=== PATIENT | male | born 1935 | race Hispanic/Latino ===

== ENCOUNTER → 2018-02-25 | Day surgery (SDC) | payer MEDICARE ==
[2018-02-24 13:07] LABS: BASOPHILS % 0.5 % (0.0-1.0); EOSINOPHILS # (AUTO) 0.4 (0.0-0.4); EOSINOPHILS % 4.3 % (0.0-6.0); HEMATOCRIT 42.5 % (38.2-49.6); HEMOGLOBIN 14.5 g/dL (14.0-18.0); LYMPHOCYTES # (AUTO) 2.2 (1.0-3.2); LYMPHOCYTES % 24.8 % (18.0-39.1); MEAN CORPUSCULAR HEMOGLOBIN 30.5 pg (28-32); MEAN CORPUSCULAR HGB CONC 34.1 g/dL (31-35); MEAN CORPUSCULAR VOLUME 89.3 fL (81-99); MONOCYTES # (AUTO) 0.6 (0.2-0.8); NEUTROPHILS # (AUTO) 5.5 (2.1-6.9); NEUTROPHILS % 62.6 % (38.7-80.0); PLATELET COUNT 181 x10e3/uL (140-360); RED BLOOD COUNT 4.76 x10e6/uL (4.3-5.7); RED CELL DISTRIBUTION WIDTH 14.1 % (11.7-14.4)
--- NOTE | 2018-02-24 13:09 | Diagnostic Imaging Report ---
PROCEDURE: Frontal and lateral views of the chest. COMPARISON: None. INDICATIONS: INGUINAL HERNIA REPAIR FINDINGS: Lines/tubes: None. Lungs: The lungs are well inflated and clear. There is no evidence of pneumonia or pulmonary edema. Pleura: There is no pleural effusion or pneumothorax. Heart and mediastinum: The heart and the mediastinum are normal. Bones: No acute bony abnormality. Degenerative changes in the thoracic spine. IMPRESSION: 1. No acute cardiopulmonary abnormalities. Pablo Mcdonald M.D. Dictated by: Pablo Mcdonald M.D. on 02/24/2018 at 13:12 Electronically approved by: Pablo Mcdonald M.D. on 02/24/2018 at 13:12
[2018-02-24 13:23] LABS: BLOOD UREA NITROGEN 18 mg/dL (7-26); BUN/CREATININE RATIO 19 (6-25); CALCIUM 9.1 mg/dL (8.4-10.2); CARBON DIOXIDE 29 mmol/L (22-29); CHLORIDE 104 mmol/L (98-107); CREATININE, SERUM 0.94 mg/dL (0.72-1.25); EST GLOMERULAR FILTRATION RATE > 60 ML/MIN (60-); GLUCOSE 110 mg/dL (74-118); SODIUM 138 mmol/L (136-145)
[~2018-02-25] MED LIST: ASPIR 8181 MG PO; BUPIVACAINE 0.25%/EPI 30ML SDV INJ ONE; CEFAZOLIN SOD 1 GM VIAL IV ONE; DESFLURANE 240 ML BTL INH ONE; DEXAMETHASONE SOD PHOS INJ 4 MG/ML VIAL ONE; DOXAZOSIN MESYLA2 MG PO; FENTANYL CITRATE/PF 100MCG/2 ML INJ ONE; GABAPENTIN400 MG PO; LEVOTHYROXINE50 MCG PO; LIDOCAINE HCL 2% LOCAL INJ 5 ML SDV VIAL INJ ONE; MIDAZOLAM HCL 2 MG/2 ML VIAL ONE; ONDANSETRON HCL INJ 2 MG/ML VIAL ONE; PROPOFOL IV EMULSION 10 MG/ML 20 ML VIAL ONE; SODIUM CHLORIDE 0.9% 50ML 50 ML ONE
--- OUTSIDE RECORDS SUMMARY | 2018-02-25 07:31 | XMS REPORT ---
[facility] Address Unknown Phone Unavailable Care Team Providers Care Coagulator Name Role Phone MICAH MATTA Unavailable Unavailable Problems This patient has no known problems. Allergies, Adverse Reactions, Alerts This patient has no known allergies or adverse reactions. Medications This patient has no known medications. Results Test Description Test Time Test Comments Text Results Atomic Results Result Comments CHEST 2 VIEWS 2018-02-24 13:12:00 [facility] [address] [place] [address] Patient Name: ZEN JAVED MR #: [id number] : 1935 Age/Sex: 82/M Req #: [id number] [facility] Physician: Ordered by: AVERY HEDRICK MD Report #: [id number] Location: OR Room/Bed: Procedure: [id number] DX/CHEST 2 VIEWS Exam Date: 02/24/18 Exam Time: 1235 REPORT STATUS: Signed PROCEDURE: Frontal and lateral views of the chest. COMPARISON: None. INDICATIONS: INGUINAL HERNIA REPAIR FINDINGS: Lines/tubes: None. Lungs: The lungs are well inflated and clear. There is no evidence of pneumonia or pulmonary edema. Pleura: There is no pleural effusion or pneumothorax. Heart and mediastinum: The heart and the mediastinum are normal. Bones: No acute bony abnormality. Degenerative changes in the thoracic spine. IMPRESSION: 1. No acute cardiopulmonary abnormalities. Joselo Mcdonald M.D. Dictated by: Joselo Mcdonald M.D. on 02/24 at 13:12 Electronically approved by: Joselo Mcdonald M.D. on 03/2018 at 13:12 Dictated By: JOSELO MCDONALD MD 1312 Transcribed By: TOMMY on 02/24/18 1312 COPY TO: AVERY HEDRICK MD
--- NOTE | 2018-02-25 13:01 | Operative Report ---
DATE OF PROCEDURE: February 25, 2018 PREOPERATIVE DIAGNOSIS: Right inguinal hernia. POSTOPERATIVE DIAGNOSIS: Right inguinal hernia. PROCEDURE PERFORMED: Repair of right inguinal hernia with Ultrapro Hernia System large size. PLATINUMSMITH: MAIDA Stout ESTIMATED BLOOD LOSS: Minimal. DRAINS: None. COMPLICATIONS: None. INDICATIONS AND FINDINGS: This patient is a pleasant 82-year-old male who complained of a bulge and discomfort of the right groin when lifting objects. He had no history of nausea, vomiting or bleeding. INTRAOPERATIVE FINDINGS: A direct hernia with herniation of properitoneal fat through the direct space, no indirect hernia sac. DESCRIPTION OF PROCEDURE: With the patient lying on the operative table in the supine position, after administration of general anesthesia, he was prepped and draped for repair of a right inguinal hernia. Preemptive anesthesia was given with 0.25% Marcaine with epinephrine as an ilioinguinal nerve block and incisional nerve block. A transverse groin incision was made and deepened through the skin, subcutaneous tissue and Matthew fascia until the external oblique aponeurosis was identified. This was incised along the course of its fibers, transecting the external inguinal ring. Medial and lateral leaves were developed. The cord was mobilized at the level of the pubic tubercle and retracted away from the operative field by a Fatuma drain. The cremaster veil was incised. An indirect hernia sac was searched for, and none was found. The patient had a direct bulge which was from the cord and then reduced. The transversalis fascia was incised, and a pocket was created using blunt dissection to accommodate the mesh. Then the Ultrapro Hernia System mesh was deployed with the underlay part of the mesh over the direct space and the overlay part of the mesh over the inguinal canal floor. A slit was made to accommodate the cord. Then the mesh was secured to the local tissues using a series of interrupted 2-0 Ethibond sutures. The wound was irrigated and bleeding points cauterized. Sponge and instrument count was pronounced correct. The wound was closed in layers using 2-0 Vicryl for the external oblique aponeurosis, 2-0 plain catgut for the soft tissues, and the skin was closed using carlitos. Marcaine 0.25% with epinephrine was given as a local block at the end of the case. The patient tolerated the procedure well was taken to the recovery room in stable condition. Job#: [id number]
== END | disposition home or self-care (01) ==
LOC: OR 07:29
PROVIDERS: ATTEND Surgery
DX: K40.20 Bilateral inguinal hernia, without obstruction or gangrene, not specified as recurrent (principal); E03.9 Hypothyroidism, unspecified; I10 Essential (primary) hypertension; I44.7 Left bundle-branch block, unspecified; Z01.810 Encounter for preprocedural cardiovascular examination; Z01.812 Encounter for preprocedural laboratory examination; Z01.818 Encounter for other preprocedural examination; Z79.82 Long term (current) use of aspirin; Z87.891 Personal history of nicotine dependence
CPT/HCPCS: 36415; 49505; 71046; 80048; 85025; 93005; C1781; J0690; J1100; J2001; J2250; J2405

== ENCOUNTER → 2019-02-07 | Outpatient (CLI) | payer MEDICARE ==
[~2019-02-07] MED LIST changes: -BUPIVACAINE 0.25%/EPI 30ML SDV INJ ONE; -CEFAZOLIN SOD 1 GM VIAL IV ONE; -DESFLURANE 240 ML BTL INH ONE; -DEXAMETHASONE SOD PHOS INJ 4 MG/ML VIAL ONE; -FENTANYL CITRATE/PF 100MCG/2 ML INJ ONE; +IOPAMIDOL 370 MG/ML 200 ML INFUS..BTL INJ ONE; -LIDOCAINE HCL 2% LOCAL INJ 5 ML SDV VIAL INJ ONE; -MIDAZOLAM HCL 2 MG/2 ML VIAL ONE; -ONDANSETRON HCL INJ 2 MG/ML VIAL ONE; -PROPOFOL IV EMULSION 10 MG/ML 20 ML VIAL ONE
[2019-02-07 09:59] LABS: BLOOD UREA NITROGEN 23 mg/dL (7-26); BUN/CREATININE RATIO 22 (6-25); CREATININE, SERUM 1.05 mg/dL (0.72-1.25); EST GLOMERULAR FILTRATION RATE > 60 ML/MIN (60-)
--- NOTE | 2019-02-07 11:26 | Diagnostic Imaging Report ---
CT SOFT TISSUE NECK WO HISTORY: Neck pain COMPARISON: None. TECHNIQUE: Axial CT images were obtained through the neck without intravenous, iodine based contrast. Coronal and sagittal reconstructions obtained from the axial data. One or more of the following dose reduction techniques were used: Automated exposure control, adjustment of the mA and/or kV according to patient size, and/or utilization of iterative reconstruction technique. DISCUSSION: A few small bilateral palatine tonsilloliths are present. Otherwise, the visualized upper aerodigestive tract is unremarkable. No radiographically significant cervical adenopathy is seen. The thyroid gland is atrophic. The submandibular and parotid glands are unremarkable. Mild bilateral carotid bulb calcified plaque is present. The block cutter, parapharyngeal, posterior cervical, and perivertebral spaces are unremarkable. Carotid siphon calcifications are present. Both ocular lenses are thinned. Otherwise, the visualized intracranial compartment and orbits are grossly unremarkable. The paranasal sinuses are clear. There is mild scarring in the lung apices. A few partially calcified right paratracheal lymph nodes suggest remote granulomatous disease. There are no acute osseous abnormalities. Cervical lordosis is preserved. There is no significant scoliosis or subluxation. Multilevel advanced spondylotic changes are present. Multilevel degenerative canal stenoses are present (due to posterior disc osteophyte complexes) - at least moderate at C3-C4 and mild at C4-C5 and C5-C6. Multilevel bilateral degenerative foraminal stenoses are present (due to uncovertebral and facet arthrosis. IMPRESSION: 1. No acute osseous abnormalities. 2. Multilevel advanced spondylosis. Multilevel degenerative canal stenoses - at least moderate at C3-C4. Multilevel bilateral degenerative foraminal stenoses. 3. The visualized upper aerodigestive tract is unremarkable. No radiographically significant cervical adenopathy. 4. Atrophic thyroid gland. Signed by: Dr. Chandler Saunders M.D. on 02/07/2019 11:23 AM
--- NOTE | 2019-02-07 12:17 | Diagnostic Imaging Report ---
CT of the chest, with contrast, 02/07/2019. History: Precordial chest pain. Comparison: None available. Technique: Multidetector CT scanning of the chest was performed from the level of the apices to the upper abdomen after intravenous administration of contrast. Coronal and sagittal multiplanar reformations were obtained. RADIATION DOSE: Total DLP: 456 mGy*cm Dose modulation, iterative reconstruction, and/or weight based adjustment of the mA/kV was utilized to reduce the radiation dose to as low as reasonably achievable. Discussion: Chest: The atria, ventricles, aorta, and main pulmonary artery are normal in size. The thyroid is small but otherwise unremarkable. There is no evidence of axillary or mediastinal adenopathy. There is mild bilateral apical and peripheral lower lobe scarring. There is no evidence of consolidation, mass, or pleural effusion. Limited evaluation of the upper abdomen shows normal adrenal glands. Bones and soft tissues: No acute abnormality. 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 IMPRESSION: Mild bilateral pulmonary fibrosis. No acute pulmonary abnormality. Signed by: Kamran Garcia on 02/07/2019 12:14 PM
== END ==
LOC: CT 08:16
PROVIDERS: ATTEND Internal Medicine Cardiovascular Disease
DX: M54.2 Cervicalgia (principal); R07.2 Precordial pain; I44.7 Left bundle-branch block, unspecified; J84.10 Pulmonary fibrosis, unspecified
CPT/HCPCS: 36415; 70490; 71260; 82565; 84520; Q9967

== ENCOUNTER → 2019-04-07 | Outpatient (CLI) | payer MEDICARE ==
[~2019-04-07] MED LIST changes: +AVODART0.5 MG PO; -IOPAMIDOL 370 MG/ML 200 ML INFUS..BTL INJ ONE; +LOVASTATIN40 MG PO; +REGADENOSON 0.4 MG/5 ML SYR IV ONE; -SODIUM CHLORIDE 0.9% 50ML 50 ML ONE
--- NOTE | 2019-04-20 12:38 | Myoview Stress Test ---
DATE OF STUDY: 04/07/2019 09:30:00 PROCEDURE TITLE: Rest/stress single isotope SPECT imaging with pharmacologic stress and gated SPECT imaging. INDICATION: Chest pain. PROCEDURE IN DETAIL: Pharmacologic stress testing was performed with regadenoson per protocol. The heart rate was 58 beats per minute at rest and increased to 70 beats per minute during the regadenoson infusion. The rest blood pressure was 111/58 mmHg and decreased to 88/49 mmHg, which is a normal response. The resting electrocardiogram demonstrated normal sinus rhythm with left bundle-branch block. There were no ST-segment changes suggestive of myocardial ischemia. Myocardial perfusion imaging was performed at rest following the injection of 11 mCi of tetrofosmin. At peak pharmacologic effect, the patient was injected with 28 mCi of tetrofosmin. Gated post-stress tomographic imaging was performed. FINDINGS: The overall quality of the study is fair. Left ventricular cavity is noted to be normal size on the rest and stress studies. SPECT images demonstrate a medium-sized mild perfusion defect in the inferior wall that is worse with stress. Gated SPECT imaging reveals inferior wall hypokinesis. The left ventricular ejection fraction was calculated to be 63%. IMPRESSION: Myocardial perfusion imaging is abnormal. There is a nontransmural scar in the inferior wall with ischemia. Overall, left ventricular systolic function was normal without regional wall motion abnormalities. Marielle Quinn MD ABS/MODL /[id number] MTDD
== END ==
LOC: NM 08:26
PROVIDERS: ATTEND Internal Medicine Cardiovascular Disease
DX: R07.2 Precordial pain (principal)
CPT/HCPCS: 78452; 93017; A9502; J2785

== ENCOUNTER → 2019-04-13 | Day surgery (SDC) | payer MEDICARE ==
[2019-04-11 14:22] LABS: BASOPHILS # (AUTO) 0.1 (0.0-0.1); BASOPHILS % 0.7 % (0.0-1.0); EOSINOPHILS # (AUTO) 0.3 (0.0-0.4); EOSINOPHILS % 4.4 % (0.0-6.0); HEMATOCRIT 43.7 % (38.2-49.6); HEMOGLOBIN 14.6 g/dL (14.0-18.0); LYMPHOCYTES # (AUTO) 2.2 (1.0-3.2); LYMPHOCYTES % 29.5 % (18.0-39.1); MEAN CORPUSCULAR HEMOGLOBIN 30.3 pg (28-32); MEAN CORPUSCULAR HGB CONC 33.4 g/dL (31-35); MEAN CORPUSCULAR VOLUME 90.7 fL (81-99); MONOCYTES # (AUTO) 0.6 (0.2-0.8); NEUTROPHILS # (AUTO) 4.2 (2.1-6.9); PLATELET COUNT 201 x10e3/uL (140-360); RED BLOOD COUNT 4.82 x10e6/uL (4.3-5.7); RED CELL DISTRIBUTION WIDTH 14.4 % (11.7-14.4)
[2019-04-11 14:40] LABS: INR 0.95; PROTHROMBIN TIME 13.2 seconds (11.9-14.5)
[2019-04-11 14:47] LABS: ALANINE AMINOTRANSFERASE 13 IU/L (0-55); ALBUMIN 3.7 g/dL (3.5-5.0); ALBUMIN/GLOBULIN RATIO 1.1 (0.8-2.0); ALKALINE PHOSPHATASE 63 IU/L (40-150); ANION GAP 9.9 mmol/L (8-16); BLOOD UREA NITROGEN 19 mg/dL (7-26); BUN/CREATININE RATIO 21 (6-25); CALCIUM 9.4 mg/dL (8.4-10.2); CARBON DIOXIDE 31 mmol/L (22-29); CHLORIDE 103 mmol/L (98-107); CREATININE, SERUM 0.89 mg/dL (0.72-1.25); EST GLOMERULAR FILTRATION RATE > 60 ML/MIN (60-); GLUCOSE 91 mg/dL (74-118); POTASSIUM 4.9 mmol/L (3.5-5.1); SODIUM 139 mmol/L (136-145)
[~2019-04-13] VITALS: Ht 162.6 cm; Wt 59.0 kg
[2019-04-13] VITALS (11 sets, daily range): BP systolic 126–156; BP diastolic 48–87
[~2019-04-13] MED LIST changes: +ASPIRIN 325 MG TAB ONE; +ATROPINE SULFATE 0.1 MG/ML 10ML SYR ONE; +FENTANYL CITRATE/PF 100MCG/2 ML INJ ONE; +HEPARIN SOD/SOD CHLORIDE 2,000 ML ONE; +IOPAMIDOL 370 MG/ML 200 ML INFUS..BTL INJ ONE; +LIDOCAINE HCL 2% LOCAL 20 ML VIAL ONE; +MIDAZOLAM HCL 2 MG/2 ML VIAL ONE; -REGADENOSON 0.4 MG/5 ML SYR IV ONE; +SODIUM CHLORIDE 0.9% 1000ML 1,000 ML ONE; +TICAGRELOR 90 MG TABLET ONE; +VERAPAMIL HCL 2.5 MG/ML 2 ML VIAL ONE
--- NOTE | 2019-04-13 12:20 | NUR ---
pt in ACU 7 , prepped for procedure. Alert oriented and appropriate, PERRLA, respirations even and unlabored to room air. Pulses x4 extremities equal and palpable. + modified barbaux and neurovascular function. Cap fill brisk < 3 sec Skin warm and dry integrity appears intact in general. IV 20g x1 to left AC started and presents healthy w/o s/s of infiltration or complaint. Abdomen soft and supple. pt offered toileting, denies need to urinate or defecate. Personal affects with patient. Family at bedside. Pt and family verbalizes understanding of POC and delay. Pre-Op Meds none. bed low and locked, side rails up x2 and call light at side[place] [employer] [place] [place] [id number]
--- NOTE | 2019-04-13 15:48 | NUR ---
ECHO CALLED TO LAB FOR STAT EXAM PER DR JON
--- NOTE | 2019-04-13 15:49 | NUR ---
ALFREDO WITH ECHO DEPT HERE FOR STAT EXAM
--- NOTE | 2019-04-13 16:11 | NUR ---
1611am Bedside report received from RAYNE Ruelas.Identiferx2. [facility] RCAx2 stents Dr Alan. Disected with small Effusion awaiting transfer to higher level care with possible surgical evaluation if necessary.Alert oriented and appropriate, Back to baseline orientation Uzbek speaking only.PERRLA, respirations even and unlabored to room air. Pulses x4 extremities equal and strong. Pedal pulses PT/DP x4 doppler and marked. Cap fill brisk < 3 sec. Skin warm and dry integrity appears D/I IV 20g to left ac presents healthy w/o s/s of infiltration or complaint.Has dial a flow received 200cc in bag 10cchr stand by. Abdomen soft and supple. pt offered toileting, denies need to urinate or defecate. No personal affects with patient. Family daughter Tameka Sinha . Pt and family verbalizes understanding of POC. MOB filed with cyn Hart RN awaiting transfer to [facility] for surgeon availability, Side rails up call light at bedside,bed brake on. Remain NPO family at bedside. Rt TR band site w/o s/s hematoma 1730 ok to reduce air in bladder 15cc.Normal neuro vascular function at this time. ds/rn
--- NOTE | 2019-04-13 17:30 | NUR ---
1730ADIAL Compression removal: Initial Cuff volume (15 cc -2 cc Removed No hematoma/bleeding noted with normal neurovascular function. -2 cc Removed No hematoma/ bleeding noted with normal neurovascular function. -2 cc Removed No hematoma/bleeding noted with normal neurovascular function. Air removal completed. 1800pm Stasis achieved sterile 2x2,Tegaderm, Coban dressing No hematoma, bleeding noted with normal neurovascular function. Wrist splint in place. Pt instructed on POC for keep arm splint on till am and transfer to higher level of care Ds/Rn
--- NOTE | 2019-04-13 19:30 | NUR ---
1927 Transferred to [facility] under Dr Dayanna francois.ICU #23 via ambulance Report phoned to Aundrea Wagner Copies of chart given for hospital to EMS transport staff Pt left via stretcher w/o O2 Left ac saline lock intact NO s/s infiltration Remains NPO ,VS stable remain sinus theodora with occasional PC RT TR band site with stasis achieved and Coban 2x2 dressing with Tegaderm and wrist splint in place. Denies CP or SOB no gross issues pain pallor pressure, VS stable and Clothes and valuable sent with patient. House Supv. Anny Rn was notified and MOT signed with copy for ambulance transport left to other facility with daughter rider for ambulance personal.Handoff of care to ambulance personal w/o incident. lorelei/aundrea
--- NOTE | 2019-04-13 19:34 | Operative Report ---
DATE OF PROCEDURE: SURGEON: Cisco Alan DO PROCEDURES PERFORMED: 1. Conscious sedation 90 minutes. 2. Selective coronary angiography x2. 3. Left heart catheterization. 4. Percutaneous transluminal angioplasty and drug-eluting stent placement to the right coronary artery. PREPROCEDURE DIAGNOSIS: Abnormal stress test with inferior ischemia. POSTPROCEDURE DIAGNOSIS: Coronary artery disease. ESTIMATED BLOOD LOSS: Less than 20 mL. SPECIMENS REMOVED: None. PROCEDURE IN DETAIL: After informed consent was obtained, the patient was brought to the cardiac catheterization laboratory in a fasting and nonsedated state. Bilateral groins were prepped and draped in usual sterile fashion. A 2% lidocaine was instilled over the right wrist for local anesthesia. Using micropuncture needle, the right radial artery was accessed via modified Seldinger technique. Diagnostic coronary angiography was performed using a TIG catheter. Diagnostic imaging revealed moderate disease in the LAD and diagonal system. The right coronary artery had two tandem severe 70% to 80% lesions and a mid chronic total occlusion. Decision was made to perform percutaneous coronary intervention. The right coronary artery was cannulated with an Ikari right catheter. He received heparin for therapeutic anticoagulation. Using a Teleport microcatheter, I was able to cross the lesion with a Whisper wire. I performed balloon angioplasty using a 2.5 balloon of all lesions. This restored VIRI-2 flow. Due to difficulty crossing lesions and tortuosity, I had to use a GuideLiner for support. I had stented the distal portion with a 2.5 x 38 Synergy drug-eluting stent. The midportion was then stented with a 3.5 x 32 Synergy drug-eluting stent. At this time, diagnostic imaging revealed a proximal dissection, which extended into the sinus of Valsalva. The ostium of the right coronary artery was stented in an overlapping fashion with a 3.5 x 20 Synergy drug-eluting stent. I then performed serial dilatations and flaring of the ostium with a 5 mm noncompliant balloon. Final angiography revealed excellent stent apposition with breast VIRI-3 flow distally. There was distal moderate stenosis that was nonflow limiting. There was improvement of the staining of the sinus of Valsalva at the end of the case. The patient tolerated the procedure well with no immediate complications. He was hemodynamically stable and asymptomatic at the time of transfer from the cardiac catheterization laboratory. PROCEDURAL FINDINGS: 1. Left main coronary artery is patent. 2. Ostial left anterior descending coronary is a 50% stenosis. The distal LAD has mild luminal irregularities. The first diagonal branch has a 50% to 60% stenosis. 3. The left circumflex coronary artery provides four small to medium caliber obtuse marginal vessels with diffuse mild disease. 4. Right coronary artery is a dominant vessel and provides posterior descending coronary artery. The proximal portion has two tandem 70% to 80% stenosis. The midportion has a chronic total occlusion. 5. Left ventricular end-diastolic pressure of 17 mmHg. INTERVENTIONAL RESULTS: Successful percutaneous coronary intervention of the right coronary artery. Pre-PCI VIRI flow was zero. Post-PCI VIRI flow was 3. Postprocedure stenosis less than 10%. IMPRESSION: 1. Coronary artery disease. 2. Sinus of Valsalva dissection. RECOMMENDATIONS: Continue dual antiplatelet therapy. Continue to monitor closely. The patient will need echocardiogram and CT angiography of the chest in the morning. DO KARSTEN Jorgensen/MODL /[id number]
== END | disposition short-term general hospital (02) ==
LOC: CATH LAB 13:00
PROVIDERS: ATTEND Internal Medicine Cardiovascular Disease
DX: I25.10 Atherosclerotic heart disease of native coronary artery without angina pectoris (principal); I25.82 Chronic total occlusion of coronary artery; R94.39 Abnormal result of other cardiovascular function study; I25.42 Coronary artery dissection; I31.3 Pericardial effusion (noninflammatory); R09.89 Other specified symptoms and signs involving the circulatory and respiratory systems; M54.2 Cervicalgia; Z88.8 Allergy status to other drugs, medicaments and biological substances; Z01.812 Encounter for preprocedural laboratory examination; Z79.82 Long term (current) use of aspirin
CPT/HCPCS: 93458; C9607; 36415; 80053; 85025; 85610; 92928; 93307; C1725; C1769; C1874; C1887; J2001; J2250; J3010; J7030; Q9967

== ENCOUNTER → 2021-04-15 | Outpatient (CLI) | payer MEDICARE ==
[~2021-04-15] MED LIST changes: -ASPIRIN 325 MG TAB ONE; -ATROPINE SULFATE 0.1 MG/ML 10ML SYR ONE; -FENTANYL CITRATE/PF 100MCG/2 ML INJ ONE; -HEPARIN SOD/SOD CHLORIDE 2,000 ML ONE; -IOPAMIDOL 370 MG/ML 200 ML INFUS..BTL INJ ONE; -LIDOCAINE HCL 2% LOCAL 20 ML VIAL ONE; -MIDAZOLAM HCL 2 MG/2 ML VIAL ONE; +REGADENOSON 0.4 MG/5 ML SYR IV ONE; -SODIUM CHLORIDE 0.9% 1000ML 1,000 ML ONE; -TICAGRELOR 90 MG TABLET ONE; -VERAPAMIL HCL 2.5 MG/ML 2 ML VIAL ONE
== END ==
LOC: NM 08:28
PROVIDERS: ATTEND Internal Medicine Cardiovascular Disease
DX: R07.9 Chest pain, unspecified (principal); I25.10 Atherosclerotic heart disease of native coronary artery without angina pectoris
CPT/HCPCS: 78452; 93017; 93306; A9502; J2785